=== PATIENT | male | born 1980 | race Caucasian/White ===

== ENCOUNTER 2020-07-07 12:11 | Emergency (ER) | payer BC, OTHER ==
[2020-07-07] MEDS ORDERED: LIDOCAINE 1% INJ-PF (10 MG/ML) 30 ML SDV INJ ONE (13:27)
[2020-07-07] MEDS ORDERED: DIPH/PERTUSS(ACELL)/TETANUS VAC/PF 0.5 ML SYR (>=10YO) IM ONE (13:27)
[2020-07-07] MEDS ORDERED: TRAMADOL HCL 50 MG TABLET PO ONE (13:27)
--- NOTE | 2020-07-07 13:41 | ER Document Report ---
HPI - HPI Patient complains to provider of: Forearm laceration Time Seen by Provider: 07/07/20 13:22 Pain Level: Denies Notes: 39-year-old male to the emergency department with complaints of a laceration to his left forearm that occurred just prior to arrival. He states that he was moving a pallet when his arm was cut on a piece of metal. He states that he has a little bit of pain. He states he is not sure about his tetanus shot. He did try to go to urgent care first and they sent him over here for repair. - ROS Systems Reviewed and Negative: Yes All other systems reviewed and negative - CONSTITUTIONAL Constitutional: DENIES: Fever, Chills - EENT EENT: DENIES: Sore Throat, Ear Pain, Congestion - NEURO Neurology: DENIES: Headache - CARDIOVASCULAR Cardiovascular: DENIES: Chest pain - RESPIRATORY Respiratory: DENIES: Trouble Breathing, Coughing - GASTROINTESTINAL Gastrointestinal: DENIES: Abdominal Pain, Nausea, Patient vomiting, Diarrhea, Constipation - MUSCULOSKELETAL Musculoskeletal: REPORTS: Extremity pain Notes: laceration to the dorsal left forearm - DERM Skin Color: Normal Skin Problems: None Past Medical History - General Information source: Patient - Social History Smoking Status: Never Smoker Frequency of alcohol use: None Drug Abuse: None Family History: Reviewed & Not Pertinent Vertical Provider Document - CONSTITUTIONAL Agree With Documented VS: Yes Exam Limitations: No Limitations General Appearance: WD/WN, No Apparent Distress - HEENT HEENT: Atraumatic, Normocephalic, PERRLA - NECK Neck: Normal Inspection, Supple - RESPIRATORY Respiratory: Breath Sounds Normal, No Respiratory Distress. negative: Rales, Rhonchi, Wheezing - CARDIOVASCULAR Cardiovascular: Regular Rate, Regular Rhythm, No Murmur - GI/ABDOMEN Gastrointestinal: Abdomen Soft, Abdomen Non-Tender, No Organomegaly - MUSCULOSKELETAL/EXTREMETIES Notes: There is a 3-1/2 cm laceration to the left dorsal mid forearm. Inspection of the laceration shows an arterial bleed on the proximal edge. It can be controlled with pressure. There is no evidence for foreign body. There is no tenderness to palpation over the left shoulder, left elbow, left wrist, left hand. 5 out of 5 handgrip to the left hand. No snuffbox tenderness. Patient denies any decrease in sensation. - NEURO Level of Consciousness: Awake, Alert, Appropriate Motor/Sensory: No Motor Deficit, No Sensory Deficit - DERM Integumentary: Warm, Dry, Laceration - See musculoskeletal for discussion of laceration to the left dorsal forearm Course - Re-evaluation Re-evalutation: 07/07/20 15:55 Attempted repair of the patient's forearm. Did visualize a arterial bleed in the proximal edge of the wound. With the aid of a blood pressure cuff to help control the bleeding for visual radiation was able to tie off that vessel. Tested to make sure that the vessel had stopped bleeding when taking off the blood pressure cuff. There was no bleeding. So went ahead and started to suture the wound. He had some mild oozing as I was suturing the wound but after completing note of suturing the wound this noticed that there is a distal hematoma. Likely holding up to 15 cc of fluid. I went and got Dr. Hennessy. He came and tried to aspirate the area. We took out a couple of stitches and it started to bleed. Dr. Hennessy thinks her may be a distal bleed as well. He asked me to restitch the area to tamponade the bleed and then to call the orthopedist. I spoke with the OR who relayed information to Dr. Lal, our orthopedist on-call, about the situation. He would like to come see the patient. It will be about 2 hours prior to him being able to come down since he is in surgery. I updated the patient about the plan. He is requesting Tylenol. We will lightly dressed him and await Dr. Lal's assessment. Patient denies any numbness and tingling he is got maintained 5 out of 5 handgrip. cap refill is less than 2 sec. 07/07/20 17:59 Called up to the OR to check on status of Dr. Lal. He states he will come to see the patient shortly. 07/07/20 18:12 Dr. aLl came and saw the patient. He examined the hematoma. He feels like the patient will do best by keeping the stitches in place and letting the hematoma reabsorb itself. He will see the patient in follow-up in about 3 weeks. Encouraged the patient to ice and elevate the arm. He agrees with the plan for Keflex for home use. Patient request to have a urine drug screen done. I have advised him that we will have appropriate Worker's Comp. urine drug screening. He states that his work would just like to have one not necessarily for Worker's Comp. but to have on hand. The plan is for his company to pay for his hospital bill [id number]. I again let the patient know that I could happily get a urine drug screen today but that if they went to try to use it that it may not suffice with Worker's Comp. We will send patient home with pain medicine and antibiotics. Updated Dr. Jimenez, my ER attending. He agrees with the plan - Vital Signs Vital signs: Temp Pulse Resp BP Pulse Ox 98.4 F 74 16 139/63 H 97 07/07/20 12:23 07/07/20 12:23 07/07/20 12:23 07/07/20 12:23 07/07/20 12:23 - Diagnostic Test Radiology reviewed: Image reviewed, Reports reviewed Procedures - Laceration/Wound Repair Dorsal Arm Wound length (cm): 3.5 Wound's Depth, Shape: Other - Superficial wound with noted bleeding arterial vessel to the proximal edge of the wound Laceration pre-procedure: Sterile PPE donned, Sterile drapes applied, Shur-Clens applied Anesthetic type: 1% Lidocaine Volume Anesthetic (mLs): 3 Wound explored: Clean, No foreign body removed Irrigated w/ Saline (mLs): 100 Wound Debrided: Minimal Wound Repaired With: Sutures Suture Size/Type: Vicryl - 2 4-0 Vicryl sutures to aid in stopping arterial bleeding from proximal laceration edge vessel injury, Ethilon - seven 4-0 nylon sutures to the skin Number of Sutures: 9 Post-procedure wound care: Sterile dressing applied Post-procedure NV exam normal: Yes Complications: Yes Notes: There was a noted arterial vessel injury to the proximal edge of the laceration. With the aid of a tourniquet from blood pressure cuff the vessel was appropriately visualized and tied off. The cuff was deflated and no bleeding was noted. The outside edges were brought together with minimal oozing of blood. However as the edges were brought together a distal hematoma was visualized. There was concern that possibly there was a distal wound edge arterial bleed. Dr. Bob Fountain was involved and he came to try to aspirate the hematoma and we removed 2 stitches to drain the blood. He did agree that there was likely a bleeding vessel underneath. He however thought that it would be difficult to tie off the vessel. We decided to close the wound again and give it some tamponade to stop the bleeding. It did after 3 more sutures were applied create a hematoma distally again on the dorsal left forearm. The little tense to touch. At this time Dr. Lal was consulted. Dr. Lal did come and see the patient and felt like it was appropriate to leave the wound as is and allow the body to reabsorb the hematoma instead of trying to open the wound again. See course for further discussion Discharge - Discharge Clinical Impression: Forearm laceration with complication Qualifiers: Encounter type: initial encounter Laterality: left Qualified Code(s): S51.812A - Laceration without foreign body of left forearm, initial encounter Traumatic hematoma of left forearm Qualifiers: Encounter type: initial encounter Qualified Code(s): S50.12XA - Contusion of left forearm, initial encounter Condition: Stable Disposition: HOME, SELF-CARE Instructions: Ice & Elevation ([facility]), Soap Cleansing ([facility]) Additional Instructions: Suture removal in 14 days. Follow-up with Dr. Lal in 3 weeks. Elevate and ice the forearm 3 times a day for 20 minutes at least. Return if any worsening pain, fevers, redness, purulent drainage from the site. Take all antibiotics until completion. Keep wound clean and dry Prescriptions: Cephalexin Monohydrate [Keflex 500 mg Capsule] 500 mg PO QID #40 capsule Oxycodone HCl/Acetaminophen [Percocet 5-325 mg Tablet] 1 tab PO Q6H PRN #12 tab PRN Reason: Forms: Return to Work Referrals: DAVINA LAL DO [ACTIVE STAFF] - 06/29/21 (Call the office and make an appt for three weeks)
--- NOTE | 2020-07-07 14:25 | RADIOLOGY REPORT (SQ) ---
EXAM DESCRIPTION: FOREARM LEFT COMPLETED DATE/TIME: 07/07/2020 1:47 pm REASON FOR STUDY: laceration, eval FB COMPARISON: None. NUMBER OF VIEWS: Two views. TECHNIQUE: Two radiographic images acquired of the left forearm, including elbow and wrist in at [address] one projection. LIMITATIONS: None. FINDINGS: MINERALIZATION: Normal. BONES: No acute fracture. No worrisome bone lesions. SOFT TISSUES: No obvious swelling or foreign body. OTHER: No other significant finding. IMPRESSION: No foreign body. No acute fracture. TECHNICAL DOCUMENTATION: JOB ID: [id number] 2010 [employer]- All Rights Reserved Reading location - IP/workstation name: [email or web address]
[2020-07-07] MEDS ORDERED: OXYCODONE-ACETAMINOPHEN 5-325 MG TABLET PO ONE (15:34)
[2020-07-07] MEDS ORDERED: ACETAMINOPHEN 325 MG TABLET PO ONE (15:42)
--- NOTE | 2020-07-07 18:15 | PDOC CONSULTATION ---
Consultation Consult Date: 07/07/20 Provider Consulted: DAVINA BERNARD History of Present Illness Patient complains of: Left forearm laceration History of Present Illness: GERARDO PERDOMO is a 39 year old male who was at work when he sustained a laceration to his forearm when a pallet fell on his arm a piece of metal cut his arm. He was first seen in urgent care where there is notable bleeding he was then sent to the emergency room. While in the emergency room area was irrigated and explored there was a bleeder proximally which was tied off in a distal bleeder which continued to bleed but they were able to adequately close the wound but he developed a hematoma after closure. It has now been 2 hours since closure and the swelling has not changed. Patient denies numbness or tingling. Does have some pain with motion of his fingers. Pain 2/10. Patient received IV antibiotics in the emergency room. Social History Smoking Status: Never Smoker Family History Family History: Reviewed & Not Pertinent Parental Family History Reviewed: No Children Family History Reviewed: No Sibling(s) Family History Reviewed.: No Medication/Allergy Allergies/Adverse Reactions: No Known Allergies Allergy (Verified 07/07/20 13:22) Review of Systems Constitutional: ABSENT: chills, fever(s), headache(s), weight gain, weight loss Eyes: ABSENT: visual disturbances Ears: ABSENT: hearing changes Cardiovascular: ABSENT: chest pain, dyspnea on exertion, edema, orthropnea, palpitations Respiratory: ABSENT: cough, hemoptysis Gastrointestinal: ABSENT: abdominal pain, constipation, diarrhea, hematemesis, hematochezia, nausea, vomiting Genitourinary: ABSENT: dysuria, hematuria Musculoskeletal: PRESENT: as per HPI Integumentary: ABSENT: rash, wounds Neurological: ABSENT: abnormal gait, abnormal speech, confusion, dizziness, focal weakness, syncope Psychiatric: ABSENT: anxiety, depression, homidical ideation, suicidal ideation Endocrine: ABSENT: cold intolerance, heat intolerance, menstrual abnormalities, polydipsia, polyuria Hematologic/Lymphatic: ABSENT: easy bleeding, easy bruising, lymphadenopathy Physical Exam Vital Signs: Temp Pulse Resp BP Pulse Ox 98.4 F 74 16 139/63 H 97 07/07/20 12:23 07/07/20 12:23 07/07/20 12:23 07/07/20 12:23 07/07/20 12:23 Intake & Output 07/06/20 07/07/20 07/08/20 06:59 06:59 06:59 Weight 63.503 kg General appearance: PRESENT: no acute distress, well-developed, well-nourished Head exam: PRESENT: atraumatic, normocephalic Eye exam: PRESENT: conjunctiva pink, EOMI, PERRLA. ABSENT: scleral icterus Ear exam: PRESENT: normal external ear exam Neck exam: ABSENT: carotid bruit, JVD, lymphadenopathy, thyromegaly Respiratory exam: PRESENT: unlabored Cardiovascular exam: PRESENT: RRR. ABSENT: diastolic murmur, rubs, systolic murmur Pulses: PRESENT: other - Normal radial/ulnar pulse Vascular exam: PRESENT: normal capillary refill GI/Abdominal exam: PRESENT: normal bowel sounds, soft. ABSENT: distended, guarding, mass, organolmegaly, rebound, tenderness Rectal exam: PRESENT: deferred Musculoskeletal exam: PRESENT: other - Left forearm: 6 cm laceration along the dorsal aspect of the forearm just ulnarly and on the midportion. Wound well approximated. No active bleeding. Notable hematoma along the laceration site unable to express bleeding from the wound. Compartments soft and compressible no sign of compartment syndrome. No sensory deficits. Patient has full IP/MP flexion/extension. Able to make full composite fist. Full extension IP/MP joints against resistance. EPL/FPL intact. Neurological exam: PRESENT: alert, awake, oriented to person, oriented to place, oriented to time, oriented to situation, CN II-XII grossly intact. ABSENT: motor sensory deficit Psychiatric exam: PRESENT: appropriate affect, normal mood. ABSENT: homicidal ideation, suicidal ideation Skin exam: PRESENT: dry, intact, warm. ABSENT: cyanosis, rash Results Impressions: Forearm X-Ray 07/07/20 13:27 IMPRESSION: No foreign body. No acute fracture. Status: Image reviewed by me - I have reviewed patient's radiographs consistent with mild forearm swelling no evidence of acute fracture. Assessment & Plan - Diagnosis (1) Laceration of left forearm Qualifiers: Encounter type: initial encounter Qualified Code(s): S51.812A - Laceration without foreign body of left forearm, initial encounter Is this a current diagnosis for this admission?: Yes Plan: Patient sustained a left forearm laceration. There was bleeding however given location of the injury this is likely a venous bleeder as opposed to arterial bleeder. His hematoma has essentially stabilized over the past 2 hours and has not worsened. There is no sign or symptoms of compartment syndrome currently. However if patient notices increasing redness swelling, pain he should present to the emergency room for further evaluation. Patient will follow up with me in 2 weeks for suture removal. Patient will be started on Keflex for bacterial prophylaxis.
[2020-07-07 18:51] VITALS: BP 130/91
[2020-07-07 19:43] LABS: URINE AMPHETAMINES SCREEN NEGATIVE; URINE BARBITURATES SCREEN NEGATIVE; URINE BENZODIAZEPINES SCREEN NEGATIVE; URINE COCAINE SCREEN NEGATIVE; URINE MARIJUANA (THC) SCREEN UNCONFIRMED POSITIVE; URINE METHADONE SCREEN NEGATIVE; URINE PHENCYCLIDINE SCREEN NEGATIVE
== END 2020-07-07 18:49 | disposition home or self-care (01) ==
LOC: ER 12:11
DX: S51.812A Laceration without foreign body of left forearm, initial encounter (principal); W45.8XXA Other foreign body or object entering through skin, initial encounter; Y93.89 Activity, other specified; Z23 Encounter for immunization
CPT/HCPCS: 99284; 96372; 80307; 73090; 90715; 12002; J3490